=== PATIENT | male | born 1980 | race Caucasian/White ===

== ENCOUNTER → 2024-01-06 | Outpatient (CLI) | payer OTHER ==
--- NOTE | 2024-01-07 17:59 | CA ---
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 67 - 155 / 56 - 104 cm??? LV Systolic Volume MOD BP 22.8 cm??? 22 - 58 / 19 - 49 cm??? LV Ejection Fraction MOD BP 57.3 % >= 55 % LV Cardiac Index MOD BP 960.5 cm???/min???m??? LV Diastolic Volume MOD 4C 49.2 cm??? LV Systolic Volume MOD 4C 22.0 cm??? LV Ejection Fraction MOD 4C 55.3 % LV Cardiac Index MOD 4C 856.3 cm???/min???m??? LV Diastolic Length 4C 7.6 cm LV Systolic Length 4C 6.0 cm LV Diastolic Volume MOD 2C 55.0 cm??? LV Systolic Volume MOD 2C 23.6 cm??? LV Ejection Fraction MOD 2C 57.1 % LV Cardiac Index MOD 2C 987.7 cm???/min???m??? LV Diastolic Length 2C 7.2 cm LV Systolic Length 2C 6.1 cm LA Volume 52.7 cm??? 18 - 58 / 22 - 52 cm??? LA Volume Index 21.5 cm???/m??? 16 - 28 cm???/m??? M-MODE Aortic Root Diameter MM 3.1 cm LA Systolic Diameter MM 3.1 cm LA Ao Ratio MM 1.0 AV Cusp Separation MM 2.0 cm DOPPLER AV Peak Velocity 220.6 cm/s AV Peak Gradient 19.5 mmHg AV Mean Velocity 152.2 cm/s AV Mean Gradient 10.6 mmHg AV Velocity Time Integral 41.6 cm LVOT Peak Velocity 103.6 cm/s LVOT Peak Gradient 4.3 mmHg LVOT Velocity Time Integral 23.5 cm MV Area PHT 2.3 cm??? Mitral E Point Velocity 90.1 cm/s Mitral A Point Velocity 96.7 cm/s Mitral E to A Ratio 0.9 MV Deceleration Time 325.1 ms TR Peak Velocity 218.7 cm/s TR Peak Gradient 19.1 mmHg FINDINGS Left Ventricle Left ventricular ejection fraction is estimated at 60-65 %. Normal left ventricular wall motion. Left ventricular cavity size normal. Right Ventricle Normal right ventricular size and function. Right ventricular systolic pressure within normal limits. Right Atrium Normal right atrial size. Left Atrium Normal left atrial size. Mitral Valve Structurally normal mitral valve. Trace mitral regurgitation. No mitral stenosis. Aortic Valve Trileaflet aortic valve. Subaortic membrane seen with a peak gradient of 19 mmHg and a mean gradient of 11 mmHg. No aortic regurgitation. Tricuspid Valve Structurally normal tricuspid valve. Mild tricuspid regurgitation. No tricuspid stenosis. Pulmonic Valve Structurally normal pulmonic valve. Trace pulmonic regurgitation. No pulmonic stenosis. Pericardium No pericardial or pleural effusion. Aorta Normal size aortic root and proximal ascending aorta. 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 No aortic regurgitation. No significant chamber size abnormality Previewed by: Dr Abhijit Calles (Electronically Signed) Final Date: 07 January 2024 17:58
== END | disposition home or self-care (01) ==
LOC: RADECHMAIN 12:49
PROVIDERS: ATTEND Family Medicine
DX: I78.0 Hereditary hemorrhagic telangiectasia (principal); I34.0 Nonrheumatic mitral (valve) insufficiency; I07.1 Rheumatic tricuspid insufficiency; I37.1 Nonrheumatic pulmonary valve insufficiency
CPT/HCPCS: 93306

== ENCOUNTER → 2024-01-06 | Outpatient (CLI) | payer OTHER ==
--- NOTE | 2024-01-06 20:11 | MR ---
EXAMINATION TYPE: MR brain wo/w con DATE OF EXAM: 01/06/2024 7:50 PM COMPARISON: None. 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 The patient was then given intravenous contrast and multi planar, T1 fat-saturation images wer e obtained. IV Contrast: 11 mL Gadobutrol FINDINGS: No evidence for vascular malformation. The escalante-white junctions, ventricular system, basal cisterns appear unremarkable. Diffusion-weighted imaging shows no evidence of restricted diffusion to suggest acute/subacute infarct. Intracranial ar terial flow voids are maintained. Midline structures show no abnormality. The susceptibility weighted images do not reveal any evidence for micro-hemorrhage. After administration of gadolinium, no abnor mal enhancement is seen. The bone marrow signal is within normal limits. Paranasal sinuses and mastoid air cells: No significant paranasal sinus disease. Visualized orbits: Orbital contents are intact. IMPRESSION: No evidence for vascular malformation. No evidence of intracranial mass, acute/subacute infarct, or a bnormal enhancement. [facility], , 01/06/2024 8:08 PM
== END | disposition home or self-care (01) ==
LOC: RADMRIMAIN 18:47
PROVIDERS: ATTEND Family Medicine
DX: I78.0 Hereditary hemorrhagic telangiectasia (principal)
CPT/HCPCS: 70553; A9585

== ENCOUNTER → 2024-01-06 | Outpatient (CLI) | payer OTHER ==
--- NOTE | 2024-01-06 09:18 | US ---
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 FINDINGS: EXAM MEASUREMENTS: Liver Length: 15.2 cm Gallbladder Wall: 0.3 cm CBD: 0.5 cm, color Doppler imaging was utilized to isolate the common bile duct for measurement. Spleen: 13.8 cm Right Kidney: 11.9 x 5.4 x 4.9 cm Left Kidney: 12.2 x 5.8 x 5.4 cm Pancreas: Tail obscured by overlying bowel gas Liver: wnl Gallbladder: No stones seen Evidence for sonographic Hackett's sign: No CBD: wnl Spleen: wnl Right Kidney: wnl Left Kidney: wnl Upper IVC: wnl Abd Aorta: wnl The liver is homogenous. The intrahepatic portion of the IVC and proximal abdominal aorta are within normal limits. There is no evidence of cholelithiasis. Common bile duct is unremarkable. The visu alized portions of the pancreas are homogenous. The spleen is unremarkable. Kidneys are symmetric a nd free of hydronephrosis. No renal lesions are seen. IMPRESSION: No evidence for acute process. [facility], , 01/06/2024 9:16 AM
== END | disposition home or self-care (01) ==
LOC: RADUSWWP 08:10
PROVIDERS: ATTEND Family Medicine
DX: I78.0 Hereditary hemorrhagic telangiectasia (principal)
CPT/HCPCS: 76700